=== PATIENT | female | born 1945 ===

== ENCOUNTER 2020-04-06 14:28 | Outpatient (REF) | payer OTHER, SELFPAY | END 2020-04-06 14:48 | LOC: NCHCN 14:28 | PROVIDERS: PCP Family Medicine; Visit Provider Family Medicine | DX: R35.0 Frequency of micturition (principal) | CPT/HCPCS: 87077; 87086; 87186 ==

== ENCOUNTER 2020-04-25 10:14 | Outpatient (REF) | payer OTHER, SELFPAY | END 2020-04-25 10:34 | LOC: NCHCN 10:14 | PROVIDERS: PCP Family Medicine; Visit Provider Family Medicine | DX: N39.0 Urinary tract infection, site not specified (principal) | CPT/HCPCS: 87077; 87086; 87186 ==

== ENCOUNTER 2022-02-10 18:40 | Outpatient (REF) | payer OTHER, SELFPAY ==
[2022-02-10 13:45] LABS: Abs Immature Grans 0.05 10^3/uL (0.0-0.06); Absolute Basophil Count 0.04 10^3/uL (0.0-0.2); Absolute Eosinophil Count 0.04 10^3/uL (0.0-0.7); Absolute Lymphocyte Count 1.12 10^3/uL (1.2-3.4); Absolute Monocyte Count 0.61 10^3/uL (0.1-0.8); Absolute Neutrophil Count 6.83 10^3/uL (1.2-6.7); Basophils % 0.5; Eosinophils % 0.5; HCT 37.1 % (36.0-46.0); HGB 12.1 g/dL (11.2-15.7); Immature Grans % 0.6; Lymphocytes % 12.9; MCH 28.6 pg (27.0-33.0); MCHC 32.6 % (32.0-36.0); MCV 88 fL (80-95); MPV 8.6 fL (8.0-11.0); Neutrophils % 78.5; Platelet Count 172 10^3/uL (130-400); RBC 4.23 10^6/uL (3.93-5.22); RDW-SD 41.8 fL; WBC 8.69 10^3/uL (4.4-10.8)
[2022-02-10 13:51] LABS: ALT 35 U/L (14-59); AST 47 U/L (15-37); Albumin 3.1 g/dL (3.4-5.0); Alkaline Phosphatase 165 U/L (46-116); BUN 10 mg/dL (7-18); Bilirubin, Total 0.6 mg/dL (0.2-1.0); CREATININE 0.6 mg/dL (0.55-1.02); Calcium 9.1 mg/dL (8.5-10.1); Chloride 96 mmol/L (98-107); Glucose 100 mg/dL (74-106); Potassium 4.6 mmol/L (3.5-5.1); Sodium 131 mmol/L (136-145); Total Protein 7.9 g/dL (6.4-8.2)
[2022-02-12 11:17] LABS: COVID-19 RT-PCR UVMMC Result Negative (Negative)
== END 2022-02-10 18:41 | disposition home or self-care (01) ==
LOC: LBN 18:40
PROVIDERS: PCP Family Medicine; Visit Provider Nurse Practitioner Family
DX: R50.9 Fever, unspecified (principal); E87.1 Hypo-osmolality and hyponatremia; N39.0 Urinary tract infection, site not specified; Z20.822 Contact with and (suspected) exposure to COVID-19
CPT/HCPCS: 80053; 87077; U0003; 85025; 87086; 87186

== ENCOUNTER 2023-03-26 16:21 | Outpatient (REF) | payer MEDICARE, SELFPAY | END 2023-03-26 16:22 | disposition home or self-care (01) | LOC: NCHCN 16:21 | PROVIDERS: PCP Family Medicine; Visit Provider Nurse Practitioner Family | DX: R31.9 Hematuria, unspecified (principal) | CPT/HCPCS: 87077; 87086; 87186 ==

== ENCOUNTER 2023-12-24 15:55 | Outpatient (REF) | payer MEDICARE, SELFPAY | END 2023-12-24 15:56 | disposition home or self-care (01) | LOC: NCHCN 15:55 | PROVIDERS: PCP Family Medicine; Visit Provider Family Medicine | DX: R39.89 Other symptoms and signs involving the genitourinary system (principal); R82.998 Other abnormal findings in urine; B96.29 Other Escherichia coli [E. coli] as the cause of diseases classified elsewhere | CPT/HCPCS: 87077; 87086; 87186 ==